=== PATIENT | male | born 1960 | race Caucasian/White ===

== ENCOUNTER 2020-01-29 14:09 | Emergency (ER) | payer OTHER, SELFPAY ==
[2020-01-29] VITALS (24 sets, daily range): BP systolic 113–157; BP diastolic 66–88; PULSE 66–102; RESP 11–20; TEMP 36.6–37.3; O2SAT 92–95
--- NOTE | 2020-01-29 13:53 | ED.GENADUL_ITS ---
Discharge Plan Disposition Patient Disposition: YANETH TOLLIVER ([facility]) Condition: Serious Discharge Details Chief Complaint: Chest Pain Clinical Impression: Non-ST elevation DE (NSTEMI) Primary Care Provider: Angella,Local ED Provider: Johnny Peralta Home Meds and New Rx's Prescriptions: No Action atorvastatin 80 mg Tablet 80 mg PO DAILY RF: 0 lisinopril 20 mg Tablet 20 mg PO DAILY RF: 0 Discharge Data Discharge Date/Time-TO BE ENTERED AT DEPARTURE: 01/29/20 16:18 Medical Decision Making 59-year-old male with a history of obesity, hypertension, hyperlipidemia, who reports being told he had a small heart attack in the past. After walking up a steep hill today he developed substernal chest pressure that radiated to the left arm was associated with shortness of breath. EMS was called, they evaluated the patient on the scene and there twelve-lead strip revealed ST segment depressions in leads V1 and V2. Patient was given 325 mg of aspirin, sublingual nitroglycerin x3, and was subsequently placed on a nitroglycerin drip by EMS with improvement of his pain. Patient will note it is been sometime since he has taken his prescribed lisinopril and statin. Patient's initial EKG reveals a normal sinus rhythm with a rate of 76, the QRS is narrow, there is subtle ST segment depression present in leads V1, V2, V3. I did review the rhythm strip obtained by EMS which shows subtle ST segment depressions in leads V1 and V2. Patient has a positive troponin of 1.04. White blood cell count 10, hematocrit 47, platelets 239. Chemistries are reassuring. Creatinine 1.1. Portable chest x-ray reveals no acute disease. Patient was placed on a heparin drip, his pain is significantly improved on n itroglycerin drip. Patient was loaded with 600 mg of Plavix, as above, he had received 325 mg of aspirin in the field. The patient lives in [facility], his primary care physician is in [facility] in the [facility]. Case was discussed with Dr Rizvi who agrees with urgent transfer to [facility]. Lab Data Lab results reviewed: Yes I reviewed the patient's lab results. Labs: Laboratory Results - last 24 hr 01/29/20 01/29/20 01/29/20 14:10 14:10 14:10 WBC 10.60 RBC 5.34 Hgb 16.1 Hct 47.0 MCV 88.0 MCH 30.1 MCHC 34.3 RDW 13.7 Plt Count 239 MPV 10.1 Immature Gran % 0.8 Neutrophils % 67.4 Lymphocytes % 21.4 Monocytes % 7.8 Eosinophils % 2.4 Basophils % 0.2 Absolute Neutrophils 7.15 H Absolute Lymphocytes 2.27 Absolute Monocytes 0.83 H Absolute Eosinophils 0.25 Absolute Basophils 0.02 APTT 25.2 Sodium 139 Potassium 3.5 Chloride 104 Carbon Dioxide 27.1 Anion Gap 7.9 BUN 12 Creatinine 1.13 Estimated GFR/1.73 m2 >= 60.00 Glucose 118 H Calcium 9.4 Magnesium 1.9 Total Bilirubin 0.4 AST 27 ALT 36 Alkaline Phosphatase 69 Troponin I 1.04 H* Total Protein 7.3 Albumin 3.7 01/29/20 01/29/20 14:40 17:40 WBC RBC Hgb Hct MCV MCH MCHC RDW Plt Count MPV Immature Gran % Neutrophils % Lymphocytes % Monocytes % Eosinophils % Basophils % Absolute Neutrophils Absolute Lymphocytes Absolute Monocytes Absolute Eosinophils Absolute Basophils APTT Sodium Cancelled Potassium Cancelled Chloride Cancelled Carbon Dioxide Cancelled Anion Gap Cancelled BUN Cancelled Creatinine Cancelled Estimated GFR/1.73 m2 Cancelled Glucose Cancelled Calcium Cancelled Magnesium Total Bilirubin Cancelled AST Cancelled ALT Cancelled Alkaline Phosphatase Cancelled Troponin I Cancelled Total Protein Cancelled Albumin Cancelled HPI General Mode of arrival: EMS . Date/Time Provider Initiated Documentation: 01/29/20 14:12 . Limitations to Documentation: no limitations . Information obtained by: patient and EMS . History of Present Illness 59 year old M presents to the emergency department with the chief complaint of Chest pain after walking up steep hill, described as moderate, Quality is described as dull, and is localized to the chest and left. Patient extremity. Patient started experiencing this hour(s) and it has been other (Improving and now approximately 2 out of 10 on nitroglycerin drip). Rest improves symptom(s), and other things that improve symptom(s), (Nitroglycerin) Other factors that worsen symptoms (Exertion) . Patient notes shortness of breath; denies syncope. Patient did receive the following treatments prior to arrival, Aspirin and other (Given aspirin, nitroglycerin sublingual x3, and placed on nitroglycerin drip titrated up to 60 mcg) Related Data Home Medications Medication Instructions Recorded Confirmed atorvastatin 80 mg PO DAILY 01/29/20 01/29/20 lisinopril 20 mg PO DAILY 01/29/20 01/29/20 Allergies Allergy/AdvReac Type Severity Reaction Status Date / Time No Known Allergies Allergy Unverified 01/29/20 14:07 Review of Systems Narrative: No syncope. Lives in the [facility]. Was taking pictures in the [facility] today. Denies recent illness. No travel, cough, known contacts. 7 systems reviewed and otherwise negative [facility] Social History Smoking/Tobacco Use Status: Never Alcohol Intake: never Drug use: Never Substance use type: does not use Do you feel safe at home: Yes Do you feel safe in your relationship?: Yes Exam Narrative Exam Narrative: GEN: awake, alert, oriented 3. Pleasant, well groomed, int eractive. HEAD: Normocephalic, atraumatic ENT: Mucous membranes moist, oropharynx unremarkable, External ear exam unremarkable EYES: PERRL, EOMI NECK: Full ROM, no AMADO, no menigismus CHEST/RESP: Nontender, clear to auscultation bilateral, no wheeze/rhonchi/rales CARDIOVASCULAR: Distant RRR, no murmur, rub krista. 2+ Rad pulse bilateral ABDOMEN: Soft, nontender, no mass. +Bowel sounds EXT: Full ROM, no edema, no rash Neuro: Grossly normal neurologic exam, conversant, interactive. Psych: Speech fluent, thoughts congruent, affect normal Critical Care Time Critical Care Time Critical Care Time: Yes Total Critical Care Time: 30 Attestation: Bedside care of the patient, discussion with consultants.
--- NOTE | 2020-01-29 14:20 | DI.RAD_ITS ---
EXAM: XR PORTABLE CHEST AP CLINICAL HISTORY: Substernal chest pain TECHNIQUE: 2D digital imaging was performed. COMPARISON: No exams were available for comparison FINDINGS: The heart size is normal. The lungs are suboptimally inflated. The patient is suboptimally centere d. No gross infiltrates or effusions are seen. There is no evidence of pneumothorax. IMPRESSION: No acute abnormality.
[2020-01-29 14:22] LABS: Abs Immature Grans 0.08 k/cumm (0.0-0.09); Absolute Basophil Count 0.02 k/cumm (0.0-0.2); Absolute Eosinophil Count 0.25 k/cumm (0.0-0.7); Absolute Lymphocyte Count 2.27 k/cumm (1.2-3.4); Absolute Monocyte Count 0.83 k/cumm (0.11-0.7); Absolute Neutrophil Count 7.15 k/cumm (1.2-6.7); Basophils % 0.2; Eosinophils % 2.4; HGB 16.1 g/dL (13.5-17.5); Immature Grans % 0.8 %; Lymphocytes % 21.4; Mean Corp. HGB Concentration 34.3 g/dL (32.0-36.0); Mean Corpuscular Hemoglobin 30.1 pg (27.0-33.0); Mean Platelet Volume 10.1 fL (8.0-11.0); Monocytes % 7.8; Neutrophils % 67.4; Platelet Count 239 x1000/uL (130-400); RBC 5.34 m/cumm (4.50-6.00); RBC Distribution Width 13.7 % (11.8-14.1)
[2020-01-29] MEDS: MAGNESIUM SULFATE 1 GM/100 ML BAG IVPB (14:26)
--- NOTE | 2020-01-29 14:28 | DI.VRAD_ITS ---
PROCEDURE INFORMATION: Exam: XR Chest, 1 View Exam date and time: 01/29/2020 2:16 PM Age: 59 years old Clinical indication: Chest pain; Other: Substernal TECHNIQUE: Imaging protocol: XR of the chest Views: 1 view. COMPARISON: No relevant prior studies available. FINDINGS: Lungs: Unremarkable. No consolidation. Pleural space: Unremarkable. No pleural effusion. No pneumothorax. Heart/Mediastinum: Unremarkable. No cardiomegaly. Vasculature: The aorta is mildly tortuous. Bones/joints: Degenerative changes involve the spine. IMPRESSION: No evidence for acute pulmonary disease. Dictated and Authenticated by: Nimesh Christiansen MD. Ordering:KHANH Turner MD
[2020-01-29] MEDS: Normal Saline Flush 10 ML SYR IVP (14:29)
[2020-01-29 14:33] LABS: PTT Activated 25.2 sec (21.0-31.4)
[2020-01-29 14:35] LABS: ALT 36 U/L (16-63); AST 27 U/L (15-37); Albumin 3.7 g/dL (3.4-5.0); Alkaline Phosphatase 69 U/L (46-116); Anion Gap 7.9 mmol/L (3-11); BUN 12 mg/dL (7-18); Bilirubin, Total 0.4 mg/dL (0.2-1.0); CO2 27.1 mmol/L (21.0-32.0); CREATININE 1.13 mg/dL (0.70-1.30); Calcium 9.4 mg/dL (8.5-10.1); Chloride 104 mmol/L (98-107); Glucose 118 mg/dL (74-106); Magnesium 1.9 mg/dL (1.8-2.4); Potassium 3.5 mmol/L (3.5-5.1); Sodium 139 mmol/L (136-145); Total Protein 7.3 g/dL (6.4-8.2)
[2020-01-29 14:37] LABS: Troponin I 1.04 ng/Ml (<0.06)
[2020-01-29] MEDS: Heparin 5,000 UNITS/ML VIAL 10000 UNITS IV (15:07)
[2020-01-29] MEDS: Clopidogrel 300 MG TAB 600 MG PO (15:15)
== END 2020-01-29 16:18 | disposition short-term general hospital (02) ==
PROVIDERS: Emergency Provider Emergency Medicine; PCP Student in an Organized Health Care Education/Training Program
DX: I21.4 Non-ST elevation (NSTEMI) myocardial infarction (principal); I10 Essential (primary) hypertension; E78.5 Hyperlipidemia, unspecified; Z91.14 Patient's other noncompliance with medication regimen
CPT/HCPCS: 36415; 80053; 93005; 96365; 96366; 96368; 96376; 99291; 71045; 83735; 84484; 85025; 85730; 93010; J1644; J3475